=== PATIENT | male | born 1975 | race Caucasian/White ===

== ENCOUNTER 2019-07-08 15:45 | Emergency (ER) | payer OTHER ==
--- NOTE | 2019-07-08 16:26 | EDM.PDOC ---
ED HPI GENERAL MEDICAL PROBLEM - General Chief Complaint: General Stated Complaint: BACK INJURY 07/08/19 Time Seen by Provider: 07/08/19 16:10 Source of Information: Reports: Patient, RN - History of Present Illness INITIAL COMMENTS - FREE TEXT/NARRATIVE: 43 yr old male presents with low back pain after playing hockey last night. States hx of bulging disc and now severe low back pain. He does have a cold patch to back and states Ibuprofen helped last night and now today is severe, even after taking Ibuprofen 800 this am. States no acute injury to back. Lower Back Pain Score (Numeric/FACES): 7 - Related Data Allergies Allergy/AdvReac Type Severity Reaction Status Date / Time No Known Allergies Allergy Verified 07/08/19 16:07 Home Meds: Home Meds Lidocaine [Lidocaine Pain Relief] 1 each TP Q12HR #5 adh..patch 07/08/19 [Rx] Methocarbamol [Robaxin-750] 750 mg PO TID #21 tablet 07/08/19 [Rx] Valsartan/Hydrochlorothiazide [Valsartan-Hctz 80-12.5 mg Tab] 1 each PO DAILY [History] predniSONE 10 mg PO .TAPER #20 tab 07/08/19 [Rx] ED ROS GENERAL - Review of Systems Review Of Systems: See Below Constitutional: Reports: No Symptoms HEENT: Reports: No Symptoms Respiratory: Reports: No Symptoms Cardiovascular: Reports: No Symptoms Musculoskeletal: Reports: Other (lumbar back pain after playing hockey) Skin: Reports: No Symptoms Neurological: Reports: No Symptoms Psychiatric: Reports: No Symptoms ED EXAM, GENERAL - Physical Exam Exam: See Below Exam Limited By: No Limitations General Appearance: Alert, No Apparent Distress Ears: Hearing Grossly Normal Nose: Normal Inspection, Normal Mucosa Head: Atraumatic, Normocephalic Neck: Normal Inspection, Supple, Non-Tender Respiratory/Chest: No Respiratory Distress, Lungs Clear, Normal Breath Sounds Cardiovascular: Normal Peripheral Pulses, Regular Rate, Rhythm, No Edema GI/Abdominal: Normal Bowel Sounds, Soft, Non-Tender Back Exam: Muscle Spasm, Other (pain worse with sitting and improves with standing and ambulation) Extremities: Normal Inspection, Normal Range of Motion Neurological: Alert, Oriented, Normal Cognition Psychiatric: Normal Affect, Normal Mood Skin Exam: Warm, Dry, Normal Color Course - Vital Signs Last Recorded V/S: Last Vital Signs Temp 96.8 F 07/08/19 15:57 Pulse 55 L 07/08/19 15:57 Resp 18 07/08/19 15:57 BP 152/97 H 07/08/19 15:57 Pulse Ox 100 07/08/19 15:57 - Re-Assessments/Exams Free Text/Narrative Re-Assessment/Exam: 07/08/19 16:37 toradol 30 mg IM given and recommend not taking Ibuprofen for 8 hour after medication. He did forget to take the BP med this am, recommend taking when return to [facility] this afternoon. ice applied to back. Departure - Departure Time of Disposition: 16:38 Disposition: Home, Self-Care 01 Condition: Good Clinical Impression: Lumbar back pain, Muscle spasm of back - Discharge Information *PRESCRIPTION DRUG MONITORING PROGRAM REVIEWED*: Not Applicable *COPY OF PRESCRIPTION DRUG MONITORING REPORT IN PATIENT YODIT: Not Applicable Referrals: PCP,None [Primary Care Provider] - Sepsis Event Note - Evaluation Sepsis Screening Result: No Definite Risk - Focused Exam Vital Signs: Vital Signs Temp Pulse Resp BP Pulse Ox 07/08/19 15:57 96.8 F 55 L 18 152/97 H 100 Date Exam was Performed: 07/08/19 Time Exam was Performed: 16:11 - Assessment/Plan Plan: Will discharge to self care with low back pain and muscle spasm, Took Ibuprofen last night and this am and some improvement Will start Lidocaine patch to the back, Prednisone taper and Methocarbamal tid prn. Do not drive after muscle relaxer. Take medications after food. Follow-up with PCP upon return to home.
[2019-07-08] MEDS ORDERED: Ketorolac 60 MG/2 ML SDV IM ONE (16:30)
[2019-07-08] MEDS: Ketorolac 30 MG/ML SDV ONE ×2 (16:30)
== END 2019-07-08 16:37 | disposition home or self-care (01) ==
LOC: LB.ED 15:45
DX: M62.830 Muscle spasm of back (principal); X50.9XXA Other and unspecified overexertion or strenuous movements or postures, initial encounter; Y93.22 Activity, ice hockey
CPT/HCPCS: 96372; 99283; J1885